=== PATIENT | male | born 1945 | race Caucasian/White ===

== ENCOUNTER → 2017-08-27 | Outpatient (CLI) | payer MEDICARE, BC ==
[2016-11-10 21:15] VITALS: BP 156/87
[~2017-08-27] MED LIST: ALLO100T PO; AZIT250T PO; CARV3.122 PO; CEFP200T PO; COLC0.6T34 PO; DABI150C PO; DIGO125T PO; DILT120T3 PO; FURO-68 PO; HYDR-2869 PO; INSU100C4 SQ; INSU100I17 SQ; INSU100V13 SQ; LISI-338 PO; LOSA100T6 PO; METO2.5T PO; METO50TA29 PO; POTA20TA82 PO; PRAV20TA2 PO; SPIR50TA2 PO; TORS100T3 PO
--- NOTE | 2017-08-27 16:52 | RAD ---
EXAM: Bilateral lower extremity arterial Doppler. HISTORY: Peripheral vascular disease, hypertension, diabetes, smoking history. COMPARISON: None. FINDINGS: Grayscale and Doppler analysis of the lower extremity arterial systems was performed. On the right, there are triphasic waveforms through the distal superficial femoral artery. There are biphasic and the popliteal artery. It becomes monophasic by the distal posterior tibial artery, but biphasic within the peroneal and anterior tibial arteries. There are monophasic within the dorsalis pedis artery. On the left, there are triphasic waveforms through the popliteal artery. There are biphasic within the peroneal and posterior tibial arteries and triphasic in the anterior tibial artery. There are monophasic in the dorsalis pedis artery. Scattered plaquing is noted throughout both lower injury arterial systems. IMPRESSION: 1. Mildly flow limiting stenosis within the proximal trifurcation vessels on the right. This becomes significantly flow limiting distally. 2. Mildly flow limiting stenosis within the left posterior tibial and peroneal arteries. It is significantly flow limiting by the dorsalis preserved.
== END | disposition home or self-care (01) ==
LOC: US 14:35
PROVIDERS: ATTEND Internal Medicine Cardiovascular Disease
DX: I70.203 Unspecified atherosclerosis of native arteries of extremities, bilateral legs (principal); E11.9 Type 2 diabetes mellitus without complications; I10 Essential (primary) hypertension; Z87.891 Personal history of nicotine dependence
CPT/HCPCS: 93925

== ENCOUNTER → 2017-11-11 | Outpatient (CLI) | payer MEDICARE, BC ==
[2016-11-10 21:15] VITALS: BP 156/87
--- NOTE | 2017-11-11 10:29 | RAD ---
2 views of the Chest 11/11/2017 2:00 AM Indication: CHEST CONGESTION Comparison: Chest radiograph, yesterday Findings: Patchy interstitial alveolar infiltrates throughout the bilateral lungs are have slightly increased in the interim since prior exam. The heart is enlarged. There is central vascular congestion. No pneumothorax or significant effusion is seen. No acute osseous changes are identified. Impression: 1. Interval mild increase in patchy interstitial alveolar infiltrates which could represent edema or pneumonia 2. Cardiomegaly and central vascular congestion
== END | disposition home or self-care (01) ==
LOC: PMG 09:48
PROVIDERS: ATTEND Physician Assistant Medical
DX: R09.89 Other specified symptoms and signs involving the circulatory and respiratory systems (principal); R91.8 Other nonspecific abnormal finding of lung field; I13.0 Hypertensive heart and chronic kidney disease with heart failure and stage 1 through stage 4 chronic kidney disease, or unspecified chronic kidney disease; E11.22 Type 2 diabetes mellitus with diabetic chronic kidney disease; N18.4 Chronic kidney disease, stage 4 (severe); I50.42 Chronic combined systolic (congestive) and diastolic (congestive) heart failure; N17.9 Acute kidney failure, unspecified; Z87.891 Personal history of nicotine dependence; Z79.4 Long term (current) use of insulin
CPT/HCPCS: 71046

== ENCOUNTER → 2018-02-20 | Outpatient (CLI) | payer MEDICARE, BC ==
[2016-11-10 21:15] VITALS: BP 156/87
--- NOTE | 2018-02-20 16:15 | RAD ---
Ankle-brachial indices, 02/20/2018: HISTORY: Nonhealing right leg wound Resting MAX measurements were obtained. Normal MAX measurements of 1.11 on the right and 1.19 on the left were obtained. Right lower extremity arterial ultrasound, 02/20/2018: HISTORY: Nonhealing right leg wound. Duplex evaluation of the major arteries in the right lower extremity was performed including grayscale, color-flow and spectral Doppler analysis. There are mild to moderate scattered atherosclerotic plaques. The right common femoral, superficial femoral and popliteal arteries demonstrate triphasic Doppler waveforms. No significant focal velocity acceleration is seen in these vessels to suggest high-grade stenosis. A patent posterior tibial artery in the right lower leg demonstrates a triphasic Doppler waveform. Patent peroneal and anterior tibial arteries in the right lower leg demonstrate biphasic Doppler waveforms. The right dorsalis pedis Doppler waveform is monophasic. A high velocity reading of 269 cm/s was obtained from the right dorsalis pedis artery suggesting severe focal stenosis at that level. IMPRESSION: 1. Mild to moderate scattered atherosclerotic plaquing. 2. No evidence of high-grade femoral-popliteal arterial stenosis. 3. Three-vessel arterial runoff in the right lower leg. 4. Doppler findings suggesting right dorsalis pedis arterial stenosis. Electronically signed by: Adeel Morin MD (02/20/2018 4:11 PM) [facility]
== END | disposition home or self-care (01) ==
LOC: US 09:52
PROVIDERS: ATTEND Emergency Medicine Undersea and Hyperbaric Medicine
DX: S81.801D Unspecified open wound, right lower leg, subsequent encounter (principal); I70.291 Other atherosclerosis of native arteries of extremities, right leg; I13.0 Hypertensive heart and chronic kidney disease with heart failure and stage 1 through stage 4 chronic kidney disease, or unspecified chronic kidney disease; E11.22 Type 2 diabetes mellitus with diabetic chronic kidney disease; I50.9 Heart failure, unspecified; N18.4 Chronic kidney disease, stage 4 (severe); E78.5 Hyperlipidemia, unspecified; X58.XXXD Exposure to other specified factors, subsequent encounter
CPT/HCPCS: 93922; 93926

== ENCOUNTER 2019-01-04 16:27 | Emergency (ER) | payer MEDICARE, BC ==
[~2019-01-04] VITALS: Ht 182.9 cm; Wt 122.2 kg
[~2019-01-04 16:27] MED LIST changes: -CARV3.122 PO; +CARV3.1230 PO; -DIGO125T PO; +DIGO125T17 PO; +LOSA100T14 PO; -LOSA100T6 PO; -SPIR50TA2 PO; +SPIR50TA4 PO
[2019-01-04 17:06] LABS: BASO # 0.1 x10^3/uL (0.0-0.2); BASO % 1 % (0-3); EOS # 0.2 x10^3/uL (0.0-0.7); EOS % 1 % (0-3); HEMATOCRIT 28.3 % (39.0-53.0); HEMOGLOBIN 9.3 g/dL (13.0-17.5); LYMPH # 1.2 x10^3/uL (1.0-4.8); LYMPH % 8 % (24-48); MEAN CORPUSCULAR HEMOGLOBIN 33 pg (25-35); MEAN CORPUSCULAR HGB CONC 33 g/dL (31-37); MEAN CORPUSCULAR VOLUME 101 fL (79-100); MONO % 7 % (0-9); NEUT # 12.4 x10^3uL (1.8-7.7); NEUT % 83 % (31-73); PLATELET COUNT 235 x10^3/uL (140-400); RED BLOOD COUNT 2.81 x10^6/uL (4.30-5.70); RED CELL DISTRIBUTION WIDTH 13.8 % (11.5-14.5); WHITE BLOOD COUNT 14.9 x10^3/uL (4.0-11.0)
--- NOTE | 2019-01-04 17:15 | PHYS DOC ---
Past History Past Medical History: Anemia, Arrhythmia, CHF, Diabetes, High Cholesterol, Heart Disease, Hypertension, Other Past Surgical History: Other Smoking: Non-smoker Alcohol Use: None Drug Use: None Adult General Chief Complaint Chief Complaint: SHORTNESS OF BREATH HPI HPI Patient is a 73 year old male who presents with complaint shortness of breath for the past 2 days. The patient states he feels very weak and short of breath at this time. Noted during triage to have O2 sats in the mid 80s. Known history of congestive heart failure, end-stage renal disease, and diabetes mellitus. Recently admitted at [facility] for treatment of congestive heart failure and sepsis in May 2018. Currently denies any chest pain. Has been having increasing lower extremity edema. Attends dialysis on Saturday, Saturday, and Saturday, and was at dialysis for full treatment 2 days ago. States that he is unable to ambulate the past a few steps without getting severely short of breath currently. Review of Systems Review of Systems Constitutional: Fatigue, denies fever or chills [] Eyes: Denies change in visual acuity, redness, or eye pain [] HENT: Denies nasal congestion or sore throat [] Respiratory: Shortness of breath[] Cardiovascular: Dyspnea on exertion, orthopnea, lower extremity edema[] GI: Denies abdominal pain, nausea, vomiting, bloody stools or diarrhea [] : Denies dysuria or hematuria [] Musculoskeletal: Denies back pain or joint pain [] Integument: Chronic wound on right great toe, denies rash [] Neurologic: Denies headache, focal weakness or sensory changes [] All other systems were reviewed and found to be within normal limits, except as documented in this note. Allergies Allergies Allergies Coded Allergies Type Severity Reaction Last Updated Verified lisinopril Adverse Reaction Intermediate cough 12/02/13 Yes Physical Exam Physical Exam Constitutional: Alert, afebrile, appears in chronically poor health. [] HENT: Normocephalic, atraumatic, bilateral external ears normal, oropharynx moist, no oral exudates, nose normal. [] Eyes: PERRLA, EOMI, conjunctiva normal, no discharge. [] Neck: Normal range of motion, no tenderness, supple, no stridor. [] Cardiovascular: Irregular rhythm, normal rate, no murmur [] Lungs & Thorax: Tachypneic, mild to moderate dissection of air movement bilaterally, rales bilaterally[] Abdomen: Bowel sounds normal, soft, no tenderness, no masses, no pulsatile masses. [] Skin: Warm, dry, no erythema, no rash. [] Back: No tenderness, no CVA tenderness. [] Extremities: No tenderness, no cyanosis, no clubbing, ROM intact, 2+ pitting edema in the bilateral lower extremities, 1 cm diabetic ulcer to the right great toe appears to be healing well with no surrounding erythema, no devitalized tissue in wound.. [] Neurologic: Alert and oriented X 3, normal motor function, normal sensory function, no focal deficits noted. [] Current Patient Data Vital Signs Vital Signs Date Time Temp Pulse Resp B/P (MAP) Pulse Ox O2 Delivery O2 Flow Rate FiO2 01/04/19 16:43 114 18 96 Room Air Lab Results Laboratory Tests Test 01/04/19 16:45 White Blood Count 14.9 x10^3/uL Red Blood Count 2.81 x10^6/uL Hemoglobin 9.3 g/dL Hematocrit 28.3 % Mean Corpuscular Volume 101 fL Mean Corpuscular Hemoglobin 33 pg Mean Corpuscular Hemoglobin Concent 33 g/dL Red Cell Distribution Width 13.8 % Platelet Count 235 x10^3/uL Neutrophils (%) (Auto) 83 % Lymphocytes (%) (Auto) 8 % Monocytes (%) (Auto) 7 % Eosinophils (%) (Auto) 1 % Basophils (%) (Auto) 1 % Neutrophils # (Auto) 12.4 x10^3uL Lymphocytes # (Auto) 1.2 x10^3/uL Monocytes # (Auto) 1.0 x10^3/uL Eosinophils # (Auto) 0.2 x10^3/uL Basophils # (Auto) 0.1 x10^3/uL Sodium Level 142 mmol/L Potassium Level 4.3 mmol/L Chloride Level 99 mmol/L Carbon Dioxide Level 33 mmol/L Anion Gap 10 Blood Urea Nitrogen 57 mg/dL Creatinine 7.5 mg/dL Estimated GFR (Cockcroft-Gault) 7.2 BUN/Creatinine Ratio 8 Glucose Level 215 mg/dL Calcium Level 10.1 mg/dL Total Bilirubin 0.6 mg/dL Aspartate Amino Transf (AST/SGOT) 14 U/L Alanine Aminotransferase (ALT/SGPT) 20 U/L Alkaline Phosphatase 94 U/L Creatine Kinase 46 U/L Creatine Kinase MB (Mass) 1.8 ng/mL Creatine Kinase MB Relative Index 3.9 % Troponin I Quantitative 0.055 ng/mL PH-Qxs-F-Type Natriuretic Peptide > 80529 pg/mL Total Protein 7.6 g/dL Albumin 3.0 g/dL Albumin/Globulin Ratio 0.7 Current Medications Medications (Trade) Dose Ordered Sig/Jordon Route PRN Reason Start Time Stop Time Status Last Admin Dose Admin Furosemide (Lasix) 40 mg 1X ONCE IVP 01/04/19 18:00 01/04/19 18:01 01/04/19 17:42 EKG EKG Interpreted by me: Heart rate 82, atrial fibrillation, left axis deviation, no acute ST elevations or depressions[] Radiology/Procedures Radiology/Procedures One view chest x-ray interpreted by me: Bilateral interstitial edema, pulmonary vascular congestion, cardiomegaly Course & Med Decision Making Course & Med Decision Making Pertinent Labs and Imaging studies reviewed. (See chart for details) Patient was started on supplemental oxygen in the emergency department at 2 L per nasal cannula with improvement in O2 sats to 95%. Chest x-ray consistent with pulmonary edema secondary to fluid overload. Due to the patient's health needs, the patient will need transfer to a higher level of care for further treatment. I spoke with Dr. Rod, hospitalist, at [facility] who agreed to accept patient for transfer. Patient treated with 40 mg of IV Lasix to help with fluid overload. Will transferred by ground EMS to [facility] for definitive care.[] Dragon Disclaimer Dragon Disclaimer This electronic medical record was generated, in whole or in part, using a voice recognition dictation system. Departure Departure: Impression: Primary Impression: Pulmonary edema Additional Impressions: Hypoxia Acute on chronic congestive heart failure End stage renal disease Diabetic ulcer of left great toe Essential hypertension Disposition: XFER SHT-TRM HOSP Condition: STABLE Referrals: [facility] (PCP) Problem Qualifiers Primary Impression: Pulmonary edema Chronicity: acute Qualified Codes: J81.0 - Acute pulmonary edema Additional Impressions: Acute on chronic congestive heart failure Heart failure type: unspecified Qualified Codes: I50.9 - Heart failure, unspecified SINDY PRADO MD Jan 04, 2019 17:15
[2019-01-04 17:28] LABS: ALBUMIN/GLOBULIN RATIO 0.7 (1.0-1.7); ALK PHOS 94 U/L (46-116); ALT (SGPT) 20 U/L (16-63); ANION GAP 10 (6-14); AST (SGOT) 14 U/L (15-37); BLOOD UREA NITROGEN 57 mg/dL (8-26); BUN/CREATININE RATIO 8 (6-20); CALCIUM 10.1 mg/dL (8.5-10.1); CARBON DIOXIDE 33 mmol/L (21-32); CHLORIDE 99 mmol/L (98-107); CREATININE 7.5 mg/dL (0.7-1.3); GFR 7.2; GLUCOSE 215 mg/dL (70-99); POTASSIUM 4.3 mmol/L (3.5-5.1); SODIUM 142 mmol/L (136-145); TOTAL BILIRUBIN 0.6 mg/dL (0.2-1.0); TOTAL PROTEIN 7.6 g/dL (6.4-8.2)
[2019-01-04 17:40] VITALS: BP 161/84
--- NOTE | 2019-01-04 17:59 | EKG ---
[address] [address] Test Date: 2019-01-04 Test Time: 16:39:11 Pat Name: ULYSSES ELAM Department: Room: Gender: M Manager Stylist: GRICEL : 1945 Requested By: SINDY PRADO Order Number: [id number] Reading MD: Hosea Vieyra MD Measurements Intervals [place] Rate: 82 P: [place]: QRS: -54 QRSD: 132 T: 118 QT: 430 QTc: 506 Interpretive Statements PROBABLE AFIB PVC'S Electronically Signed On 01-08-2019 15:53:27 CDT by Hosea Vieyra MD
[2019-01-04] MEDS ORDERED: FUROSEMIDE 40 MG/4 ML VIAL IVP ONE (18:00)
[2019-01-04 18:06] LABS: INFLUENZA A PATIENT NEGATIVE (NEGATIVE); INFLUENZA B PATIENT NEGATIVE (NEGATIVE)
--- NOTE | 2019-01-05 07:52 | RAD ---
PORTABLE CHEST 1V CLINICAL INDICATION: Short of air, weakness COMPARISON: 11/11/2017 FINDINGS: Heart is normal in size. Diffuse bilateral interstitial opacities are seen. No focal consolidation. No pneumothorax or pleural effusion. Visualized bony thorax is within normal limits. IMPRESSION: Bilateral interstitial opacities maybe secondary to interstitial pulmonary edema or atypical/viral infection. Electronically signed by: Rob Servin DO (01/05/2019 7:49 AM) [facility]
== END 2019-01-04 17:55 | disposition short-term general hospital (02) ==
LOC: ER 16:27
DX: J81.1 Chronic pulmonary edema (principal); R09.02 Hypoxemia; I50.9 Heart failure, unspecified; I09.81 Rheumatic heart failure; E11.22 Type 2 diabetes mellitus with diabetic chronic kidney disease; I13.2 Hypertensive heart and chronic kidney disease with heart failure and with stage 5 chronic kidney disease, or end stage renal disease; N18.6 End stage renal disease; E78.00 Pure hypercholesterolemia, unspecified; E11.621 Type 2 diabetes mellitus with foot ulcer; Z99.2 Dependence on renal dialysis; Z86.2 Personal history of diseases of the blood and blood-forming organs and certain disorders involving the immune mechanism; Z88.8 Allergy status to other drugs, medicaments and biological substances
CPT/HCPCS: 36415; 71045; 80053; 82553; 83880; 84484; 85025; 87804; 93005; 96374; 99285; J1940

== ENCOUNTER 2019-01-15 07:58 | Emergency (ER) | payer MEDICARE, BC ==
[~2019-01-15] VITALS: Ht 182.9 cm; Wt 117.2 kg
--- NOTE | 2019-01-15 08:20 | PHYS DOC ---
Past History Past Medical History: Anemia, Arrhythmia, CHF, Diabetes, High Cholesterol, Heart Disease, Hypertension, Other Past Surgical History: Other Additional Past Surgical Histo: dialysis fistula left arm Smoking: Non-smoker Alcohol Use: None Drug Use: None Adult General Chief Complaint Chief Complaint: DYSPNEA/RESPIRATOY DISTRESS HPI HPI Patient is a 73 year old male who presents with complaint shortness of breath for the past week days. The patient states he feels very short of breath at this time. He was released from [facility] 1 week ago for the same thing. Notes that he has difficulty sleeping, having to sleep more upright since returning home and this is been getting worse over time. Known history of congestive heart failure, end-stage renal disease, and diabetes mellitus. Currently denies any chest pain. Has been having increasing lower extremity edema. Attends dialysis on Saturday, Saturday, and Saturday, and was at dialysis for full treatment 1 days ago. States that he is unable to ambulate the past a few steps without getting severely short of breath currently.[] Review of Systems Review of Systems Constitutional: Denies fever or chills [] Eyes: Denies change in visual acuity, redness, or eye pain [] HENT: Denies nasal congestion or sore throat [] Respiratory: See history of present illness[] Cardiovascular: No chest pain or palpitations[] GI: Denies abdominal pain, nausea, vomiting, bloody stools or diarrhea [] : Denies dysuria or hematuria [] Musculoskeletal: Denies back pain or joint pain [] Integument: Denies rash or skin lesions [] Neurologic: Denies headache, focal weakness or sensory changes [] Endocrine: Denies polyuria or polydipsia [] All other systems were reviewed and found to be within normal limits, except as documented in this note. Allergies Allergies Allergies Coded Allergies Type Severity Reaction Last Updated Verified lisinopril Adverse Reaction Intermediate cough 12/02/13 Yes Physical Exam Physical Exam Constitutional: Well developed, well nourished, no acute distress, non-toxic appearance. [] HENT: Normocephalic, atraumatic, bilateral external ears normal, oropharynx moist, no oral exudates, nose normal. [] Eyes: PERRLA, EOMI, conjunctiva normal, no discharge. [] Neck: Normal range of motion, no tenderness, supple, no stridor. [] Cardiovascular:Heart rate regular rhythm, no murmur [] Lungs & Thorax: Bilateral breath sounds with diminished breath sounds, scattered rales[] Abdomen: Bowel sounds normal, soft, no tenderness, no masses, no pulsatile masses. [] Skin: Warm, dry, no erythema, no rash. [] Back: No tenderness, no CVA tenderness. [] Extremities: No tenderness, no cyanosis, no clubbing, ROM intact, pretibial edema is present. Patient's right lower extremity/foot not evaluated since it is in a dressing from wound care. reports that this was doing better when evaluated 2 days ago and redressed at that time. [] Neurologic: Alert and oriented X 2, this is his normal baseline according to his , normal motor function, normal sensory function, no focal deficits noted. [] Psychologic: Affect flat, [] EKG EKG EKG shows a regular rhythm at 65 bpm, left axis at -54, QTC of 490 ms, and no ST elevations, interpreted by me at 0823[] Radiology/Procedures Radiology/Procedures Portable chest, 01/15/2019: HISTORY: Shortness of breath Comparison is made to a study from 01/04/2019. The heart is enlarged. The pulmonary vascularity is prominent but better defined than on the previous study. There are minimal bibasilar opacities. The findings suggest improving chronic congestive heart failure. No definite pleural fluid is seen. A vascular stent is projected over the left axillary region. IMPRESSION: Mild congestive heart failure has improved since 01/04/2019.[] Course & Med Decision Making Course & Med Decision Making Pertinent Labs and Imaging studies reviewed. (See chart for details) ED course: Patient arrived, was placed in bed, and tolerated exam well. After the return of the lab and imaging studies, consultation was made initially with Dr. Lu, who does not recall the patient from last week. Further evaluation of the patient's medical record shows that he was admitted to the hospitalist service at [facility]. During the time of waiting for reply from the hospitalist service, and after having discussed lab and imaging findings with patient and family, they were wanting to leave and just receive dialysis tomorrow. Stressed that they were here because they were worried that the patient was not able to sleep due to difficulty breathing and that this had been getting worse over the past week. Initially they requested cough medicine and wanted to leave AGAINST MEDICAL ADVICE. They appear to be able to make an informed decision and were able to state the risks to include or permanent disability in their own words. Ultimately they decided to stay/be transferred. Medical decision making: This appears to be fluid overload/CHF that while improved with dialysis from his last admission seems to be worsening again over this past week since discharge. There is no evidence of a STEMI, no evidence of a pneumonia.[] Dragon Disclaimer Dragon Disclaimer This electronic medical record was generated, in whole or in part, using a voice recognition dictation system. Departure Departure: Impression: Primary Impression: Acute on chronic diastolic (congestive) heart failure Additional Impression: End stage renal disease Disposition: 05 TRANSFER OTHER Condition: IMPROVED Referrals: [facility] (PCP) Problem Qualifiers YADY BISHOP DO Jan 15, 2019 08:19
--- NOTE | 2019-01-15 08:23 | EKG ---
[address] [address] Test Date: 2019-01-15 Test Time: 08:21:30 Pat Name: ULYSSES ELAM Department: Room: Gender: M Waste Baler: : 1945 Requested By: YADY BISHOP Order Number: [id number] Reading MD: Hosea Vieyra MD Measurements Intervals [place] Rate: 65 P: [place]: QRS: -54 QRSD: 126 T: 122 QT: 470 QTc: 490 Interpretive Statements ATRIAL FIBRILLATION WITH CONTROLLED VENTRICULAR RESPONSE NON-SPECIFIC ST/T CHANGES LAD IVCD Electronically Signed On 01-18-2019 22:04:07 CDT by Hosea Vieyra MD
[2019-01-15 08:30] LABS: BASO # 0.1 x10^3/uL (0.0-0.2); BASO % 1 % (0-3); EOS # 0.2 x10^3/uL (0.0-0.7); EOS % 2 % (0-3); HEMATOCRIT 26.7 % (39.0-53.0); LYMPH # 0.9 x10^3/uL (1.0-4.8); LYMPH % 10 % (24-48); MEAN CORPUSCULAR HEMOGLOBIN 34 pg (25-35); MEAN CORPUSCULAR HGB CONC 34 g/dL (31-37); MEAN CORPUSCULAR VOLUME 100 fL (79-100); MONO # 0.8 x10^3/uL (0.0-1.1); MONO % 8 % (0-9); NEUT # 7.6 x10^3uL (1.8-7.7); NEUT % 80 % (31-73); PLATELET COUNT 195 x10^3/uL (140-400); RED BLOOD COUNT 2.68 x10^6/uL (4.30-5.70); RED CELL DISTRIBUTION WIDTH 13.9 % (11.5-14.5); WHITE BLOOD COUNT 9.5 x10^3/uL (4.0-11.0)
[2019-01-15 08:50] LABS: ALBUMIN 3.1 g/dL (3.4-5.0); ALBUMIN/GLOBULIN RATIO 0.8 (1.0-1.7); CALCIUM 8.7 mg/dL (8.5-10.1); CREATININE 5.2 mg/dL (0.7-1.3); MAGNESIUM 1.9 mg/dL (1.8-2.4); POTASSIUM 4.2 mmol/L (3.5-5.1); TOTAL BILIRUBIN 0.5 mg/dL (0.2-1.0); TOTAL PROTEIN 7.2 g/dL (6.4-8.2)
--- NOTE | 2019-01-15 08:53 | RAD ---
Portable chest, 01/15/2019: HISTORY: Shortness of breath Comparison is made to a study from 01/04/2019. The heart is enlarged. The pulmonary vascularity is prominent but better defined than on the previous study. There are minimal bibasilar opacities. The findings suggest improving chronic congestive heart failure. No definite pleural fluid is seen. A vascular stent is projected over the left axillary region. IMPRESSION: Mild congestive heart failure has improved since 01/04/2019. Electronically signed by: Adeel Morin MD (01/15/2019 8:50 AM) [facility]
[2019-01-15 10:37] VITALS: BP 144/70
== END 2019-01-15 11:50 | disposition short-term general hospital (02) ==
LOC: ER 07:58
DX: E11.22 Type 2 diabetes mellitus with diabetic chronic kidney disease (principal); I13.2 Hypertensive heart and chronic kidney disease with heart failure and with stage 5 chronic kidney disease, or end stage renal disease; I50.9 Heart failure, unspecified; N18.6 End stage renal disease; Z99.2 Dependence on renal dialysis; Z86.2 Personal history of diseases of the blood and blood-forming organs and certain disorders involving the immune mechanism; Z88.8 Allergy status to other drugs, medicaments and biological substances
CPT/HCPCS: 36415; 71045; 80053; 83690; 83735; 83880; 84443; 84484; 85025; 85610; 93005; 99285

== ENCOUNTER 2019-06-11 08:09 | Emergency (ER) | payer MEDICARE, BC ==
[~2019-06-11] VITALS: Ht 182.9 cm; Wt 117.2 kg
--- NOTE | 2019-06-11 08:35 | EKG ---
[address] [address] Test Date: 2019-06-11 Test Time: 08:15:29 Pat Name: ULYSSES ELAM Department: Room: Gender: M Property Management Specialist: : 1945 Requested By: YADY BISHOP Order Number: [id number] Reading MD: Hosea Vieyra MD Measurements Intervals [place] Rate: 63 P: [place]: QRS: -62 QRSD: 140 T: 114 QT: 478 QTc: 493 Interpretive Statements ATRIAL FIBRILLATION WITH CONTROLLED VENTRICULAR RESPONSE CONSIDER LVH LBBB Electronically Signed On 06-12-2019 15:54:31 CDT by Hosea Vieyra MD
[2019-06-11 08:48] LABS: BASO # 0.1 x10^3/uL (0.0-0.2); BASO % 1 % (0-3); EOS # 0.1 x10^3/uL (0.0-0.7); EOS % 2 % (0-3); HEMATOCRIT 34.7 % (39.0-53.0); HEMOGLOBIN 11.5 g/dL (13.0-17.5); LYMPH % 11 % (24-48); MEAN CORPUSCULAR HEMOGLOBIN 33 pg (25-35); MEAN CORPUSCULAR HGB CONC 33 g/dL (31-37); MEAN CORPUSCULAR VOLUME 100 fL (79-100); MONO # 0.5 x10^3/uL (0.0-1.1); MONO % 6 % (0-9); NEUT # 6.9 x10^3uL (1.8-7.7); NEUT % 81 % (31-73); PLATELET COUNT 107 x10^3/uL (140-400); RED BLOOD COUNT 3.46 x10^6/uL (4.30-5.70); RED CELL DISTRIBUTION WIDTH 16.5 % (11.5-14.5); WHITE BLOOD COUNT 8.6 x10^3/uL (4.0-11.0)
--- NOTE | 2019-06-11 08:48 | PHYS DOC ---
Past History Past Medical History: A-Fib, Anemia, Arrhythmia, CHF, CVA, Diabetes, High Cholesterol, Heart Disease, Hypertension Past Surgical History: No Surgical History Additional Past Surgical Histo: dialysis fistula left arm Smoking: Non-smoker Alcohol Use: None Drug Use: None Adult General Chief Complaint Chief Complaint: MECHANICAL FALL HPI HPI Patient is a 74-year-old male presents after a syncopal episode this morning as he was taking out the trash. He did strike his head. He is on eliquis due to known history of atrial fibrillation. He denies any chest pains or palpitations. Reports that he was only out for a couple of seconds. His last tetanus vaccine was less than 5 years ago. Denies any nausea or vomiting. Denies any difficulty breathing. Nothing makes symptoms better or worse..[] Review of Systems Review of Systems Constitutional: Denies fever or chills [] Eyes: Denies change in visual acuity, redness, or eye pain [] HENT: Denies nasal congestion or sore throat [] Respiratory: Denies cough or shortness of breath [] Cardiovascular: No additional information not addressed in HPI [] GI: Denies abdominal pain, nausea, vomiting, bloody stools or diarrhea [] : Denies dysuria or hematuria [] Musculoskeletal: Denies back pain or joint pain [] Integument: Denies rash, see history of present illness, also abrasion on his left knee[] Neurologic: Denies focal weakness or sensory changes, see history of present illness [] Endocrine: Denies polyuria or polydipsia [] All other systems were reviewed and found to be within normal limits, except as documented in this note. Allergies Allergies Allergies Coded Allergies Type Severity Reaction Last Updated Verified lisinopril Adverse Reaction Intermediate cough 12/02/13 Yes Physical Exam Physical Exam Constitutional: Well developed, well nourished, no acute distress, non-toxic appearance. [] HENT: Normocephalic, abrasion and edema right forehead. TMs are clear without any blood or fluid behind them, bilateral external ears normal, oropharynx moist, no oral exudates, nose normal. [] Eyes: PERRLA, EOMI, conjunctiva normal, no discharge. [] Neck: Normal range of motion, no tenderness, supple, no stridor. [] Cardiovascular:Heart rate regular rhythm, no murmur [] Lungs & Thorax: Bilateral breath sounds clear to auscultation [] Abdomen: Bowel sounds normal, soft, no tenderness, no masses, no pulsatile masses. [] Skin: Warm, dry, no erythema, no rash. Abrasion left knee, full active range of motion of the knee. No varus or valgus laxity of the left knee. Patient is distally neurovascularly intact. [] Back: No tenderness, no CVA tenderness. [] Extremities: No tenderness, no cyanosis, no clubbing, ROM intact, no edema. [] Neurologic: Alert and oriented X 3, normal motor function, normal sensory function, no focal deficits noted. [] Psychologic: Affect normal, judgement normal, mood normal. [] Current Patient Data Vital Signs Vital Signs Date Time Temp Pulse Resp B/P (MAP) Pulse Ox O2 Delivery O2 Flow Rate FiO2 06/11/19 08:09 97.7 67 22 92 EKG EKG EKG shows an irregular rhythm with no P waves, 63 bpm, left axis, QTC of 493 ms, no ST elevation. No acute changes when compared with EKG of 01/15/2019.[] Radiology/Procedures Radiology/Procedures PROCEDURE: CT HEAD AND CERVICAL SPINE WO CT HEAD AND CERVICAL SPINE WO Date: 06/11/2019 8:29 AM Clinical Indication: Syncope, head injury, on blood thinners Comparison: CT head 10/18/2015. CT head and C-spine 12/04/2013. Technique: 5 mm axial tomographic images were obtained of the head without contrast. These were viewed on brain and bone windows. Noncontrast CT of the cervical spine was performed. Sagittal and coronal reformats were performed and evaluated. One or more of the following dose reduction techniques were utilized: Automated exposure control (AEC), Adjustment of mA and/or kV according to patient size, Use of iterative reconstruction technique such as ASiR, CT scan done according to ALARA and image gently/image wisely HEAD FINDINGS: Mild generalized cerebral and cerebellar volume loss. Moderate nonspecific periventricular hypoattenuation, most commonly seen with chronic small vessel ischemic disease. Large area of left posterior MCA territory encephalomalacia. No intra- or extra-axial mass or fluid collection. No acute hemorrhage. Exvacuodilatation of the left lateral ventricle occipital and temporal horns. No hydrocephalus. The burns-white matter junction is normal. The basilar cisterns are patent. The visualized paranasal sinuses are normal. The visualized portions of the orbits and globes are normal. The mastoid air cells are clear. No aggressive osseous lesion or fracture. CERVICAL SPINE FINDINGS: The cervical spine is normally aligned. No acute fracture. No aggressive lytic or blastic osseous lesions. Moderate multilevel degenerative disc space height loss. Multilevel spinal canal stenosis secondary to disc protrusions and marginal osteophytes, worst and moderate to severe at C3-4. Multilevel mild and moderate neuroforaminal narrowing secondary to uncovertebral arthrosis. Multilevel mild and moderate facet arthrosis. Bilateral thyroid nodules, largest a 2.3 cm right thyroid nodule. No cervical lymphadenopathy. Bilateral carotid atherosclerosis. The visualized aerodigestive tract is normal. The visualized portions of the lungs are clear. IMPRESSION: 1. No acute intracranial process. 2. No acute cervical spine fracture. 3. Mild cerebral volume loss. Moderate chronic small vessel ischemic disease. Large area of left MCA territory encephalomalacia. 4. Degenerative cervical spondylosis, worst at C3-4 with moderate to severe spinal canal narrowing. 5. Indeterminate right thyroid nodule measuring 2.2 cm. This could be further characterized with nonemergent thyroid ultrasound, if not performed previously. PROCEDURE: PORTABLE CHEST 1V PORTABLE CHEST 1V INDICATION: Syncope. COMPARISON STUDY: 01/15/2019. FINDINGS: Lungs: Low lung volume. Bilateral perihilar and basilar heterogeneous opacities. Indistinct pulmonary vasculature. Pleura: No pleural effusion or pneumothorax. Heart and Mediastinum: Cardiomegaly. Atherosclerosis of the thoracic aorta. IMPRESSION: Low lung volumes with bilateral perihilar and basilar opacities, likely subsegmental atelectasis and interstitial edema. [] Course & Med Decision Making Course & Med Decision Making Pertinent Labs and Imaging studies reviewed. (See chart for details) ED course: Patient arrived, was placed in bed, and tolerated exam well. Was transferred to and from radiology with any Patients. After return of the imaging studies and lab studies, these were discussed with the patient. Aspirin was ordered. Wounds were cleaned and dressed as noted. Consultation was made with the hospitalist service due to the syncopal episode and the elevated troponin. He was admitted in improved condition. Medical decision making: There is no evidence of an intracranial mass or bleed. 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 He is being admitted for further evaluation and treatment.[] Dragon Disclaimer Dragon Disclaimer This electronic medical record was generated, in whole or in part, using a voice recognition dictation system. Departure Departure: Impression: Primary Impression: Elevated troponin Additional Impressions: Syncope Chronic kidney disease Disposition: 05 TRANSFER OTHER Admitting Physician: Zeenat Lu Condition: IMPROVED Referrals: [facility] (PCP) Laceration Repair Lac Repair Indication: Right forehead deep abrasion[] Procedure: The patient was placed in the appropriate position and the area was then cleansed. The laceration was closed with skin glue Total repaired wound length: 1.2 cm. Other Items: None The patient tolerated the procedure well. Complications: None. Problem Qualifiers Additional Impressions: Syncope Syncope type: unspecified Qualified Codes: R55 - Syncope and collapse Chronic kidney disease Chronic kidney disease stage: on chronic dialysis Qualified Codes: N18.6 - End stage renal disease; Z99.2 - Dependence on renal dialysis YADY BISHOP DO Jun 11, 2019 08:48
[2019-06-11 09:00] LABS: ALBUMIN 3.5 g/dL (3.4-5.0); CALCIUM 9.2 mg/dL (8.5-10.1); CREATININE 6.3 mg/dL (0.7-1.3); GFR 8.8; POTASSIUM 3.9 mmol/L (3.5-5.1); TOTAL BILIRUBIN 0.7 mg/dL (0.2-1.0); TOTAL PROTEIN 7.1 g/dL (6.4-8.2)
--- NOTE | 2019-06-11 09:08 | RAD ---
PORTABLE CHEST 1V INDICATION: Syncope. COMPARISON STUDY: 01/15/2019. FINDINGS: Lungs: Low lung volume. Bilateral perihilar and basilar heterogeneous opacities. Indistinct pulmonary vasculature. Pleura: No pleural effusion or pneumothorax. Heart and Mediastinum: Cardiomegaly. Atherosclerosis of the thoracic aorta. IMPRESSION: Low lung volumes with bilateral perihilar and basilar opacities, likely subsegmental atelectasis and interstitial edema. Electronically signed by: Leon Adame MD (06/11/2019 9:05 AM) [facility] [place]
--- NOTE | 2019-06-11 09:25 | RAD ---
CT HEAD AND CERVICAL SPINE WO Date: 06/11/2019 8:29 AM Clinical Indication: Syncope, head injury, on blood thinners Comparison: CT head 10/18/2015. CT head and C-spine 12/04/2013. Technique: 5 mm axial tomographic images were obtained of the head without contrast. These were viewed on brain and bone windows. Noncontrast CT of the cervical spine was performed. Sagittal and coronal reformats were performed and evaluated. One or more of the following dose reduction techniques were utilized: Automated exposure control (AEC), Adjustment of mA and/or kV according to patient size, Use of iterative reconstruction technique such as ASiR, CT scan done according to ALARA and image gently/image wisely HEAD FINDINGS: Mild generalized cerebral and cerebellar volume loss. Moderate nonspecific periventricular hypoattenuation, most commonly seen with chronic small vessel ischemic disease. Large area of left posterior MCA territory encephalomalacia. No intra- or extra-axial mass or fluid collection. No acute hemorrhage. Exvacuodilatation of the left lateral ventricle occipital and temporal horns. No hydrocephalus. The burns-white matter junction is normal. The basilar cisterns are patent. The visualized paranasal sinuses are normal. The visualized portions of the orbits and globes are normal. The mastoid air cells are clear. No aggressive osseous lesion or fracture. CERVICAL SPINE FINDINGS: The cervical spine is normally aligned. No acute fracture. No aggressive lytic or blastic osseous lesions. Moderate multilevel degenerative disc space height loss. Multilevel spinal canal stenosis secondary to disc protrusions and marginal osteophytes, worst and moderate to severe at C3-4. Multilevel mild and moderate neuroforaminal narrowing secondary to uncovertebral arthrosis. Multilevel mild and moderate facet arthrosis. Bilateral thyroid nodules, largest a 2.3 cm right thyroid nodule. No cervical lymphadenopathy. Bilateral carotid atherosclerosis. The visualized aerodigestive tract is normal. The visualized portions of the lungs are clear. IMPRESSION: 1. No acute intracranial process. 2. No acute cervical spine fracture. 3. Mild cerebral volume loss. Moderate chronic small vessel ischemic disease. Large area of left MCA territory encephalomalacia. 4. Degenerative cervical spondylosis, worst at C3-4 with moderate to severe spinal canal narrowing. 5. Indeterminate right thyroid nodule measuring 2.2 cm. This could be further characterized with nonemergent thyroid ultrasound, if not performed previously. Electronically signed by: Leon Adame MD (06/11/2019 9:23 AM) [facility]
[2019-06-11] MEDS ORDERED: ASPIRIN 81 MG TAB.CHEW PO ONE (09:45)
[2019-06-11] MEDS ORDERED: NEOMY/BACITR/POLYMYXIN OINT PACKET. TP ONE (09:45)
[2019-06-11 13:09] VITALS: BP 136/75
== END 2019-06-11 13:35 | disposition short-term general hospital (02) ==
LOC: ER 08:09
DX: S00.81XA Abrasion of other part of head, initial encounter (principal); S80.212A Abrasion, left knee, initial encounter; R55 Syncope and collapse; R79.89 Other specified abnormal findings of blood chemistry; I13.2 Hypertensive heart and chronic kidney disease with heart failure and with stage 5 chronic kidney disease, or end stage renal disease; E11.22 Type 2 diabetes mellitus with diabetic chronic kidney disease; N18.6 End stage renal disease; I50.9 Heart failure, unspecified; I48.91 Unspecified atrial fibrillation; E78.00 Pure hypercholesterolemia, unspecified; Z86.2 Personal history of diseases of the blood and blood-forming organs and certain disorders involving the immune mechanism; Z86.73 Personal history of transient ischemic attack (TIA), and cerebral infarction without residual deficits; Z99.2 Dependence on renal dialysis; Z88.8 Allergy status to other drugs, medicaments and biological substances; W18.39XA Other fall on same level, initial encounter; Y93.89 Activity, other specified; Y92.89 Other specified places as the place of occurrence of the external cause; Y99.8 Other external cause status
CPT/HCPCS: 12011; 36415; 70450; 71045; 72125; 80053; 83735; 84484; 85025; 85610; 85730; 93005; 99285-25

== ENCOUNTER → 2019-12-08 | Outpatient (CLI) | payer MEDICARE, BC ==
[~2019-12-08] MED LIST changes: +POTA20TA4 PO; -POTA20TA82 PO
--- NOTE | 2019-12-08 18:20 | RAD ---
CT THORACIC SPINE WO CONTRAST Indication: Arm numbness and pain Technique: Noncontrast CT imaging was performed of the thoracic spine, multiplanar reconstruction images submitted. One or more of the following individualized dose reduction techniques were utilized for this examination: 1. Automated exposure control 2. Adjustment of the mA and/or kV according to patient size 3. Use of iterative reconstruction technique. Comparison: None Findings: There is bone demineralization. 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 Thoracic vertebral body stature is mostly maintained other than very mild superior endplate concavity at T12 at site of fracture of the vertebral body which extends from the superior endplate to the posterior, inferior endplate and posterior cortical surface with mild offset fracture fragments, not associated with significant osseous retropulsion. There is accentuation of thoracic kyphosis. There is multilevel thoracic facet degenerative change, contributes to multilevel neural foramina compromise. There is likely moderate to severe narrowing on the left at T1-T2, overall mild narrowing on the left such as T8-T9 and T11-T12. There is cjsr-hy-vcriiuqx narrowing on the right at T10-T11 and T9-10, moderate narrowing on the right at T6-T7. There is moderate to severe narrowing on the right at T2-T3. There is moderate to severe right and moderate left T12-L1 neural foramina compromise. There is disc osteophyte complex T12-L1 slightly indenting the ventral thecal sac. No high-grade thoracic spinal stenosis is identified on this nonmyelographic exam. There is moderate thoracic dextroscoliosis. Heart is enlarged. There is extensive coronary calcification. There is also atherosclerotic calcification of the celiac and superior mesenteric arteries. Left kidney is not seen on this exam. There are a few dense, small, likely partially calcified nodules of the right upper lobe and left lower lobe. There are some splenic granulomas, also nonspecific slightly lobulated contour medially. IMPRESSION: 1. There is likely recent T12 vertebral body fracture extending from the superior endplate to the posterior, inferior endplate and posterior cortical surface. There is bone demineralization. 2. 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 3. Multilevel facet degenerative change contributes to multilevel thoracic neural foramina compromise. 4. There is extensive coronary calcification. Heart is enlarged. Electronically signed by: Leon Santos MD (12/08/2019 6:17 PM) [id number]
== END | disposition home or self-care (01) ==
LOC: CT 10:48
PROVIDERS: ATTEND Neurological Surgery
DX: S22.089A Unspecified fracture of T11-T12 vertebra, initial encounter for closed fracture (principal); M40.294 Other kyphosis, thoracic region; M53.85 Other specified dorsopathies, thoracolumbar region; M25.78 Osteophyte, vertebrae; I25.10 Atherosclerotic heart disease of native coronary artery without angina pectoris; I51.7 Cardiomegaly; X19.XXXA Contact with other heat and hot substances, initial encounter; Y93.89 Activity, other specified; Y92.89 Other specified places as the place of occurrence of the external cause; Y99.8 Other external cause status
CPT/HCPCS: 72128

== ENCOUNTER → 2020-04-19 | Outpatient (CLI) | payer MEDICARE, BC ==
--- NOTE | 2020-04-19 16:09 | CARD ---
MR#: [id number] Date of Study: 04/19/2020 Ordering Physician: VALERIE LYNNE, Referring Physician: VALERIE LYNNE, Tech: Nia Castellanos APPROVED REPORT EXAM: Two-dimensional and M-mode echocardiogram with Doppler and color Doppler. Other Information Quality : AverageHR: 63bpm Technically limited study due to body habitus. INDICATION Cardiomyopathy RISK FACTORS Hypertension Hyperlipidemia Diabetes 2D DIMENSIONS RVDd3.7 (2.9-3.5cm)Left Atrium(2D)5.6 (1.6-4.0cm) IVSd1.3 (0.7-1.1cm)Aortic Root(2D)3.3 (2.0-3.7cm) LVDd6.1 (3.9-5.9cm)LVOT Diameter2.0 (1.8-2.4cm) PWd1.2 (0.7-1.1cm)LVDs5.2 (2.5-4.0cm) FS (%) 14.2 %SV55.6 ml Aortic Valve AoV Peak Guillermo.187.1cm/sAoV VTI39.1cm AO Peak GR.14.0mmHgLVOT Peak Guillermo.100.9cm/s LVOT VTI 21.19cmAO Mean GR.7mmHg TERESSA (VMAX)1.76cd5CXM (VTI)1.73cm2 Mitral Valve MV E Whjgurio24.0cm/sMV E Peak Gr.80mmHg MV DECEL [id number] A Vjpmsooe55.5cm/s MV E Mean Gr.2mmHgE/A Ratio3.6 Pulmonary Valve PV Peak Htccgzos93.4cm/sPV Peak Grad.3mmHg Tricuspid Valve TR P. Vuioiiaj478dt/sRAP NOAKCCUX0uuGl TR Peak Gr.01tvWwWUDL39tyOv LEFT VENTRICLE The Left Ventricle is mildly dilated. There is mild to moderate concentric left ventricular hypertrop hy. The systolic function is moderately impaired. The Ejection Fraction is 30-35%. There is global hy pokinesis of the left ventricle. Transmitral Doppler flow pattern is abnormal. RIGHT VENTRICLE The right ventricle is mildly dilated. There is normal right ventricular wall thickness. Systolic fun ction is mildly reduced. ATRIA The left atrium is mildly dilated. The right atrium is mildly dilated. The interatrial septum is inta ct with no evidence for an atrial septal defect or patent foramen ovale as noted on 2-D or Doppler im aging. AORTIC VALVE The aortic valve is thickened but opens well. Doppler and Color Flow revealed trace aortic regurgitat ion. There is no significant aortic valvular stenosis. MITRAL VALVE The mitral valve is normal in structure and function. There is no evidence of mitral valve prolapse. There is no mitral valve stenosis with an mean gradient of 2 mmHg. Doppler and Color-flow revealed mi ld to moderate mitral regurgitation. TRICUSPID VALVE The tricuspid valve is normal in structure and function. Doppler and Color Flow revealed mild to mode rate tricuspid regurgitation with an estimated PAP of 70 mmHg. There is no tricuspid valve stenosis. PULMONIC VALVE The pulmonic valve is not well visualized. Doppler and Color Flow revealed trace to mild pulmonic olga vular regurgitation. GREAT VESSELS The aortic root is normal in size. The ascending aorta is borderline dilated. The IVC was not well vi sualized. PERICARDIAL EFFUSION There is no evidence of significant pericardial effusion. Critical Notification Critical Value: No <Conclusion> The Left Ventricle is mildly dilated. The systolic function is moderately impaired. The Ejection Fraction is 30-35%. There is global hypokinesis of the left ventricle. There is mild to moderate concentric left ventricular hypertrophy. Doppler and Color Flow revealed trace aortic regurgitation. There is no significant aortic valvular stenosis. Doppler and Color-flow revealed mild to moderate mitral regurgitation. Doppler and Color Flow revealed mild to moderate tricuspid regurgitation with an estimated PAP of 70 mmHg. Signed by : Nhan Plummer MD Electronically Approved : 04/19/2020 16:08:28
--- NOTE | 2020-04-19 16:22 | RAD ---
MR#: [id number] Date of Study: 04/19/2020 Ordering Physician: VALERIE VIEYRA, Referring Physician: VALERIE VIEYRA, Tech: Odette Marin RVT, MARCKSD APPROVED REPORT Patient Location: OUT-PATIENT Indications PAD There are bilateral mild to moderate diffuse atherosclerotic plaques in the lower extremity arterial vessels. Spectral waveforms are mostly triphasic and biphasic in the right side from the common femo ral artery to the popliteal segment. Below the knee the posterior tibial and peroneal velocities are within normal limits. Slightly diminished dorsalis pedis velocities and a monophasic wave pattern b ut overall no significant occlusive disease noted. On the left side there are triphasic waveforms from the common femoral artery to the popliteal segmen t. Below the knee the posterior tibial artery velocities are elevated but triphasic. The peroneal a rtery is occluded. The anterior tibial artery has normal velocities. Risk Factors Hypertension Diabetes Smoking VELOCITY AND DOPPLER WAVEFORM ANALYSIS RIGHT cm/secWaveformSeverity LEFT cm/secWaveform Severity pCFA 110.0TriphasicpCFA 107.0Triphasic Prof Fem Art. 92.0BiphasicProf Fem Art. 111.0Triphasic Fem Art Prox. 86.0TriphasicFem Art Prox. 99.0Triphasic Fem Art Mid. 79.0TriphasicFem Art Mid. 107.0Triphasic Fem Art Dist. 109.0TriphasicFem Art Dist. 97.0Triphasic Pop Art(Fossa) 67.0TriphasicPop Art(AK) 60.0Triphasic WALL WORKER Prox. 41.0BiphasicPTA Prox. 158.0Triphasic WALL WORKER Dist. 41.0BiphasicPTA Dist. 57.0Biphasic Per Art Mid. Per Art Mid. Occluded Per Art Dist.119.0TriphasicPer Art Dist. KELLIE Prox. 27.0BiphasicATA Prox. 75.0Biphasic DPA 37MonophasicDPA 115Triphasic Critical Notification Critical Value: No <Conclusion> 1. No critical lower extremity arterial disease noted. Probable mild to moderate disease below the knee. Signed by : Valerie Vieyra, Electronically Approved : 04/19/2020 16:22:16
== END | disposition home or self-care (01) ==
LOC: US 12:24
PROVIDERS: ATTEND Internal Medicine Cardiovascular Disease
DX: I08.8 Other rheumatic multiple valve diseases (principal); I11.9 Hypertensive heart disease without heart failure; I25.5 Ischemic cardiomyopathy; I73.9 Peripheral vascular disease, unspecified
CPT/HCPCS: 93306; 93925

== ENCOUNTER 2020-08-16 19:06 | Emergency (ER) | payer MEDICARE, BC ==
[~2020-08-16] VITALS: Ht 182.9 cm; Wt 100.7 kg
--- NOTE | 2020-08-16 20:28 | RAD ---
Exam: Right RIBS with PA chest INDICATION: Right anterior lower rib pain TECHNIQUE: Frontal view of the chest with frontal and oblique views of the right ribs Comparisons: None FINDINGS: Heart is enlarged. Pulmonary vessels are within normal limits. Hazy opacity lung bases bilaterally. No pleural effusion. No displaced rib fractures. IMPRESSION: 1. Findings likely related to mild pulmonary edema. 2. No displaced rib fractures. Electronically signed by: Perla Armando MD (08/16/2020 8:25 PM) [facility]
--- NOTE | 2020-08-16 20:29 | RAD ---
Exam: Right knee 3 views INDICATION: Right anterior knee pain with abrasion TECHNIQUE: Frontal, lateral and oblique views of the right knee Comparisons: None FINDINGS: Diffuse osteopenia. Bone mineralization is normal. No acute or healed fractures. Soft tissues are unremarkable. IMPRESSION: No acute osseous abnormality. Electronically signed by: Perla Armando MD (08/16/2020 8:26 PM) [facility]
[2020-08-16] MEDS ORDERED: LIDOCAINE 1%/EPI 1:100,000 20 ML VIAL. IJ ONE (20:30)
--- NOTE | 2020-08-16 20:54 | PHYS DOC ---
Past History Past Medical History: Cancer, CHF, CVA, Hypertension, Renal Failure (on dialysis MWF) Past Surgical History: Other Additional Past Surgical Histo: LEFT FISTULA, LEFT KIDNEY Smoking: Non-smoker Alcohol Use: None Drug Use: None General Adult EDM: Chief Complaint: MECHANICAL FALL HPI: HPI: Patient is a 75-year-old male, brought to the emergency department by his after a fall this evening. Patient was picking up dog toys when he lost his balance and fell forward hitting his head on a table. He denies any loss of consciousness, neck pain, nausea, vomiting, vision changes, or headache. He complains of pain and a laceration to his right orbit, an abrasion and pain to his right anterior knee, and right lower anterior rib pain. He denies any shortness of breath, hemoptysis, chest pain, cough, dizziness, syncope, abdominal pain, fever, or confusion. Patient is currently on dialysis on Mondays, Wednesdays, and Fridays. Patient states his last tetanus shot was less than 5 years ago. He currently rates his pain a 6 out of 10 on the pain scale, he denies any alleviating factors, the pain is worse with patient and his right eye. Review of Systems: Review of Systems: Complete ROS is negative unless otherwise noted in HPI. Current Medications: Current Meds: Current Medications Medications (Trade) Dose Ordered Sig/[facility] Start Time Stop Time Status Last Admin Dose Admin Lidocaine/ Epinephrine (Xylocaine 1%-Epi 1:100,000) 20 ml 1X ONCE 08/16/20 20:30 08/16/20 20:31 DC 08/16/20 20:27 20 ML Allergies: Allergies: Allergies Coded Allergies Type Severity Reaction Last Updated Verified lisinopril Adverse Reaction Intermediate cough 12/02/13 Yes Physical Exam: PE: See Above Constitutional: Well developed, well nourished, no acute distress, non-toxic appearance. [] HENT: Normocephalic, bilateral external ears normal, oropharynx moist, no oral exudates, nose normal; tenderness to palpation of the right orbit [] Eyes: PERRLA, EOMI, conjunctiva normal, no discharge, see skin assessment [] Neck: Normal range of motion, no tenderness, supple, no stridor. [] Cardiovascular:Heart rate regular rhythm, no murmur [] Lungs & Thorax: Bilateral breath sounds clear to auscultation in upper lobes bilaterally, diminished in the lower lobes bilaterally, no retractions, speaking full sentences; right lower anterior rib tenderness to palpation, no subcutaneous emphysema, no crepitus [] Abdomen: Bowel sounds normal, soft, no tenderness, no masses, no pulsatile masses. [] Skin: Warm, dry; 3 cm stellate laceration noted to lateral right orbit, no visible foreign body, bleeding controlled with bandage in place; 2 cm diameter abrasion to right anterior lower knee, no bleeding Back: No tenderness Extremities: Right knee: Anterior tenderness to palpation, no deformity, no crepitus, no tenderness, no cyanosis, no clubbing, ROM intact, no edema. [] Neurologic: Alert and oriented X 3, normal motor function, normal sensory function, no focal deficits noted. [] Psychologic: Affect normal, judgement normal, mood normal. [] Current Patient Data: Vital Signs: Vital Signs Date Time Temp Pulse Resp B/P (MAP) Pulse Ox O2 Delivery O2 Flow Rate FiO2 08/16/20 19:20 97.6 58 20 136/97 (110) 97 Room Air EKG: EKG: [] Radiology/Procedures: Radiology/Procedures: PROCEDURE: KNEE RIGHT 3V Exam: Right knee 3 views INDICATION: Right anterior knee pain with abrasion TECHNIQUE: Frontal, lateral and oblique views of the right knee Comparisons: None FINDINGS: Diffuse osteopenia. Bone mineralization is normal. No acute or healed fractures. Soft tissues are unremarkable. IMPRESSION: No acute osseous abnormality.[] PROCEDURE: RIBS RIGHT AND PA CHEST Exam: Right RIBS with PA chest INDICATION: Right anterior lower rib pain TECHNIQUE: Frontal view of the chest with frontal and oblique views of the right ribs Comparisons: None FINDINGS: Heart is enlarged. Pulmonary vessels are within normal limits. Hazy opacity lung bases bilaterally. No pleural effusion. No displaced rib fractures. IMPRESSION: 1. Findings likely related to mild pulmonary edema. 2. No displaced rib fractures. PROCEDURE: CT HEAD AND MAXILLOFACIAL WO Exam: CT head and maxillofacial without contrast INDICATION: Head and facial pain after fall TECHNIQUE: Sequential axial images through the head and face were obtained without the administration of IV contrast. Comparisons: 06/17/2019 FINDINGS: Head: No focal parenchymal lesion or hemorrhage is identified. There is no midline shift or sulcal effacement. There is a chronic infarct at the left parietal lobe. No acute vascular territory infarction is identified. Holt-white distinction is preserved. The ventricular system is within normal limits without compression hydrocephalus. The basal cisterns are well maintained. Face: Extra cranial soft tissue scalp contusion overlying the right superior orbital ridge. The visualized portions of the paranasal sinuses and mastoid air cells are well-pneumatized. No acute fractures. IMPRESSION: Extra cranial soft tissue scalp contusion overlying the right superior orbital ridge without underlying osseous or intracranial abnormality. Exposure: One or more of the following in the visualized dose reduction techniques were utilized for this examination: 1. Automated exposure control 2. Adjustment of the MA and/or KV according to patient size Use of iterative of reconstructive technique Electronically signed by: Perla Armando MD (08/16/2020 9:15 PM) [facility] Laceration Repair by pa: Anesthesia: 1% lidocaine locally with epinephrine Location: Lateral right orbit Tendon/Joint/Nerves: No injury Foreign body: None detected after copious irrigation and exploration with NS and chlorhexidine Technique: 6 simple Interrupted Sutures with 6-0 Prolene Complexity: No subcutaneous sutures/mucosal repair/edge excision Post Closure Length: 3 cm Patient's bleeding was easily controlled in the department and there is no indication of anemia. No evidence of compartment syndrome, neurologic injury, vascular injury, open joint, tendon laceration, or foreign body. Patient is appropriate for outpatient follow up. Heart Score: Risk Factors: Risk Factors: DM, Current or recent (<one month) smoker, HTN, HLP, family history of CAD, obesity. Risk Scores: Score 0 - 3: 2.5% MACE over next 6 weeks - Discharge Home Score 4 - 6: 20.3% MACE over next 6 weeks - Admit for Clinical Observation Score 7 - 10: 72.7% MACE over next 6 weeks - Early Invasive Strategies Course & Med Decision Making: Course & Med Decision Making Pertinent Labs and Imaging studies reviewed. (See chart for details) [] Dragon Disclaimer: Dragon Disclaimer: This electronic medical record was generated, in whole or in part, using a voice recognition dictation system. Departure Departure: Impression: Primary Impression: Laceration of right orbit Qualified Codes: S05.41XA - Penetrating wound of orbit with or without foreign body, right eye, initial encounter Additional Impressions: Head injury, acute, without loss of consciousness Qualified Codes: S09.90XA - Unspecified injury of head, initial encounter Abrasion, right knee, initial encounter Rib pain on right side Disposition: 01 DC HOME SELF CARE/HOMELESS Condition: STABLE Referrals: [facility]IT [facility] (PCP) Patient Instructions: Facial Laceration, [id number], Fall Prevention and Home Safety, [id number], Head Injury, Adult, [id number], Rib Contusion Additional Instructions: Tylenol as needed for pain. Apply ice to sore areas as needed for comfort. Follow the head injury precautions provided. Keep the sutured area clean and dry. Keep the dressing that was placed today on for 24 hours then change the dressing twice a day and as needed. Follow-up with your primary care doctor, or return to the emergency room in 5-7 days to have the sutures removed, sooner if you develop signs of infection including: redness, warmth, drainage, or a fever. SAMY SCHILLING APRN Aug 16, 2020 20:54
[2020-08-16] MEDS ORDERED: NEOMY/BACITR/POLYMYXIN OINT PACKET. TP ONE (21:00)
--- NOTE | 2020-08-16 21:18 | RAD ---
Exam: CT head and maxillofacial without contrast INDICATION: Head and facial pain after fall TECHNIQUE: Sequential axial images through the head and face were obtained without the administration of IV contrast. Comparisons: 06/17/2019 FINDINGS: Head: No focal parenchymal lesion or hemorrhage is identified. There is no midline shift or sulcal effacement. There is a chronic infarct at the left parietal lobe. No acute vascular territory infarction is identified. Holt-white distinction is preserved. The ventricular system is within normal limits without compression hydrocephalus. The basal cisterns are well maintained. Face: Extra cranial soft tissue scalp contusion overlying the right superior orbital ridge. The visualized portions of the paranasal sinuses and mastoid air cells are well-pneumatized. No acute fractures. IMPRESSION: Extra cranial soft tissue scalp contusion overlying the right superior orbital ridge without underlying osseous or intracranial abnormality. Exposure: One or more of the following in the visualized dose reduction techniques were utilized for this examination: 1. Automated exposure control 2. Adjustment of the MA and/or KV according to patient size Use of iterative of reconstructive technique Electronically signed by: Perla Armando MD (08/16/2020 9:15 PM) [facility]
[2020-08-16 22:00] VITALS: BP 136/78
[2020-08-16] MEDS ORDERED: ONDANSETRON ODT 4 MG TAB.RAPDIS PO ONE (22:30)
== END 2020-08-16 22:30 | disposition home or self-care (01) ==
LOC: ER 19:06
DX: S05.41XA Penetrating wound of orbit with or without foreign body, right eye, initial encounter (principal); S09.90XA Unspecified injury of head, initial encounter; S80.211A Abrasion, right knee, initial encounter; R07.81 Pleurodynia; I13.0 Hypertensive heart and chronic kidney disease with heart failure and stage 1 through stage 4 chronic kidney disease, or unspecified chronic kidney disease; N18.9 Chronic kidney disease, unspecified; I50.9 Heart failure, unspecified; Z86.73 Personal history of transient ischemic attack (TIA), and cerebral infarction without residual deficits; Z88.8 Allergy status to other drugs, medicaments and biological substances; W18.09XA Striking against other object with subsequent fall, initial encounter; Y93.89 Activity, other specified; Y92.89 Other specified places as the place of occurrence of the external cause; Y99.8 Other external cause status
CPT/HCPCS: 12013; 70450; 70486; 71101; 73562; 99285; Q0162

== ENCOUNTER → 2020-10-19 | Outpatient (CLI) | payer MEDICARE, BC ==
--- NOTE | 2020-10-20 04:12 | RAD ---
XR THORACIC SPINE 3VIEWS 10/19/2020 12:34 PM INDICATION: Back pain, patient unable to lay down. COMPARISON: None available TECHNIQUE: 3 views of the thoracic spine are provided. FINDINGS/ IMPRESSION: 1. Dextroconvex curvature of the thoracic spine is noted which may be secondary to patient positionin g. Sagittal alignment appears intact. There is bridging anterior marginal osteophytosis as may be see n with diffuse idiopathic skeletal hyperostosis. Minimal superior plate concavity at the suspected T6 vertebral level, likely chronic. No significant compression fractures identified. Patient positionin g limits evaluation. If there is persistent clinical concern, further evaluation with MR thoracic spi ne could be of benefit. 2. Vascular stent graft is partially profiled suspected axillary region. Electronically signed by: Yaima Connors MD (10/20/2020 4:10 AM) SELMA
--- NOTE | 2020-10-20 04:13 | RAD ---
XR LUMBAR SPINE 4+V 10/19/2020 12:34 PM INDICATION: Neck pain COMPARISON: None available. TECHNIQUE: 5 views of the lumbar spine are provided. FINDINGS/ IMPRESSION: 1. There are 5 nonrib-bearing lumbar type vertebral bodies with mild levoconvex curvature of the lumb ar spine. There is grade 1 retrolisthesis of L2 on L3 and L3 on L4. There is moderate to advanced dis c height loss at L4-L5. Moderate disc height loss at L3-L4 and L5-S1 disc height loss at T12-L1 and L 1-L2. No acute compression fracture is identified. 2. Moderate to advanced facet arthropathy in lower lumbar spine. Osseous neural foraminal stenosis cobb spected at L5-S1. Atherosclerotic changes of the abdominal aorta are present. 3. No spondylolysis. Sacrum and coccyx are intact. Electronically signed by: Yaima Connors MD (10/20/2020 4:11 AM) [facility]
== END ==
LOC: PMG 12:03
PROVIDERS: ATTEND Physician Assistant Medical
DX: M54.5 Low back pain (principal); M54.9 Dorsalgia, unspecified
CPT/HCPCS: 72072; 72110

== ENCOUNTER 2021-01-11 15:36 | Emergency (ER) | payer MEDICARE, BC ==
[~2021-01-11] VITALS: Ht 182.9 cm; Wt 100.7 kg
[~2021-01-11 15:36] MED LIST changes: -LISI-338 PO; +LISI-517 PO
[2021-01-11] MEDS ORDERED: ONDANSETRON PF 4 MG/2 ML VIAL. IVP ONE (16:00)
[2021-01-11] MEDS ORDERED: IOHEXOL 300 MG/ML 75 ML VIAL. IV ONE (16:00)
[2021-01-11] MEDS ORDERED: IV NORMAL SALINE 1,000ML 1,000 ML IV SCH (16:00)
[2021-01-11 16:26] LABS: BASO # 0.1 x10^3/uL (0.0-0.2); BASO % 1 % (0-3); EOS % 1 % (0-3); HEMATOCRIT 31.4 % (39.0-53.0); HEMOGLOBIN 10.3 g/dL (13.0-17.5); LYMPH # 0.5 x10^3/uL (1.0-4.8); LYMPH % 10 % (24-48); MEAN CORPUSCULAR HEMOGLOBIN 34 pg (25-35); MEAN CORPUSCULAR HGB CONC 33 g/dL (31-37); MEAN CORPUSCULAR VOLUME 104 fL (79-100); MONO # 0.6 x10^3/uL (0.0-1.1); MONO % 11 % (0-9); NEUT # 4.2 x10^3uL (1.8-7.7); NEUT % 77 % (31-73); PLATELET COUNT 141 x10^3/uL (140-400); RED BLOOD COUNT 3.03 x10^6/uL (4.30-5.70); RED CELL DISTRIBUTION WIDTH 16.2 % (11.5-14.5); WHITE BLOOD COUNT 5.4 x10^3/uL (4.0-11.0)
[2021-01-11 16:37] LABS: CALCIUM 9.3 mg/dL (8.5-10.1); CREATININE 3.4 mg/dL (0.7-1.3); GFR 17.8; POTASSIUM 3.7 mmol/L (3.5-5.1)
[2021-01-11 16:46] LABS: ALBUMIN 3.5 g/dL (3.4-5.0); ALBUMIN/GLOBULIN RATIO 0.9 (1.0-1.7); TOTAL BILIRUBIN 0.6 mg/dL (0.2-1.0); TOTAL PROTEIN 7.5 g/dL (6.4-8.2)
--- NOTE | 2021-01-11 17:19 | RAD ---
Exam: CT of chest, abdomen and pelvis without contrast INDICATION: Chest pain, with vomiting TECHNIQUE: Sequential axial images through the chest, abdomen and pelvis obtained without IV contrast . Sagittal and coronal reformatted images were reconstructed from the axial data and reviewed. Comparisons: None FINDINGS: Visualized portions of the thyroid are unremarkable. There are numerous prominent but not enlarged bi lateral lymph nodes. Heart is moderately enlarged. Moderate coronary artery dilatation. Trace bilateral pleural effusions. Thoracic aorta has a normal course and caliber. Pulmonary artery is not enlarged. Airways are patent. Mild bronchial wall thickening. There is groundglass opacity at lung bases bilate rally. Trace left pleural effusion. Evaluation of the solid abdominal organs is limited secondary to noncontrast technique. Liver, spleen, pancreas and adrenals are unremarkable. Gallbladder is distended and appears thin-wall ed. Left kidney is absent. There are cystic exophytic lesions at the right kidney which are incompletely characterized on this study. Mild adjacent fat stranding is also noted. Bladder is decompressed not well evaluated. Prostate is not enlarged. Large and small bowel are unremarkable. Appendix is not identified. No free intra-abdominal air or f luid. No obstruction. Abdominal aorta has a normal course and caliber. Abdominal vasculature is patent. No enlarged intra-abdominal lymph nodes are identified. No suspicious osseous lesions or acute fractures. IMPRESSION: 1. Cardiomegaly with trace pericardial effusion. 2. Trace left pleural effusion. 3. No acute processes identified within the abdomen or pelvis. 4. Numerous exophytic cystic lesions at the right kidney incompletely characterized on this study. F urther evaluation with nonemergent/outpatient renal protocol CT or MRI is recommended. Exposure: One or more of the following in the visualized dose reduction techniques were utilized for this examination: 1. Automated exposure control 2. Adjustment of the MA and/or KV according to patient size 3. Use of iterative of reconstructive technique Electronically signed by: Perla Armando MD (01/11/2021 5:16 PM) [facility]
--- NOTE | 2021-01-11 18:01 | PHYS DOC ---
Past History Past Medical History: Cancer, CHF, CVA, Hypertension, Renal Failure Past Surgical History: Other Additional Past Surgical Histo: LEFT FISTULA, LEFT KIDNEY Smoking: Non-smoker Alcohol Use: None Drug Use: None Adult General Chief Complaint Chief Complaint: NAUSEA/VOMITING/DIARRHEA HPI HPI Patient is a 75-year-old male with a past medical history of stroke, hypertension, end-stage renal disease on dialysis Saturday now presenting the emergency department for dysphagia and vomiting. 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 States that as he tries to eat he has hypersalivation and a large amount of secretions and ends up regurgitating approximately 20 or 30 seconds after a meal. States that this has progressed in severity and patient has been able to tolerate liquids but unable to successfully tolerate solids. No reported fever chills. Patient is denying any chest pain or abdominal pain. Review of Systems Review of Systems Constitutional: Denies fever or chills [] Eyes: Denies change in visual acuity, redness, or eye pain [] HENT: Denies nasal congestion or sore throat [] Respiratory: Denies cough or shortness of breath [] Cardiovascular: No additional information not addressed in HPI [] GI: Denies abdominal pain, nausea, vomiting, bloody stools or diarrhea [] : Denies dysuria or hematuria [] Musculoskeletal: Denies back pain or joint pain [] Integument: Denies rash or skin lesions [] Neurologic: Denies headache, focal weakness or sensory changes [] Endocrine: Denies polyuria or polydipsia [] All other systems were reviewed and found to be within normal limits, except as documented in this note. Current Medications Current Medications Current Medications Medications (Trade) Dose Ordered Sig/[facility] Start Time Stop Time Status Last Admin Dose Admin Iohexol (Omnipaque 300 Mg/ml) 75 ml 1X ONCE 01/11/21 16:00 01/11/21 16:08 DC Ondansetron HCl (Zofran) 4 mg 1X ONCE 01/11/21 16:00 01/11/21 16:08 DC 01/11/21 16:04 4 MG Sodium Chloride 1,000 ml @ 1,000 mls/hr Q1H 01/11/21 16:00 01/11/21 16:59 DC 01/11/21 16:04 1,000 MLS/HR Allergies Allergies Allergies Coded Allergies Type Severity Reaction Last Updated Verified lisinopril Adverse Reaction Intermediate cough 12/02/13 Yes Physical Exam Physical Exam Constitutional: Well developed, well nourished, no acute distress, non-toxic appearance. [] HENT: Normocephalic, atraumatic, bilateral external ears normal, oropharynx moist, no oral exudates, nose normal. [] Eyes: PERRLA, EOMI, conjunctiva normal, no discharge. [] Neck: Normal range of motion, no tenderness, supple, no stridor. AV graft with palpable thrill Cardiovascular:Heart rate regular rhythm, no murmur [] Lungs & Thorax: Bilateral breath sounds clear to auscultation [] Abdomen: Bowel sounds normal, soft, no tenderness, no masses, no pulsatile masses. [] Skin: Warm, dry, no erythema, no rash. [] Back: No tenderness, no CVA tenderness. [] Extremities: No tenderness, no cyanosis, no clubbing, ROM intact, no edema. [] Neurologic: Alert and oriented X 3, normal motor function, normal sensory function, no focal deficits noted. [] Psychologic: Affect normal, judgement normal, mood normal. [] Current Patient Data Vital Signs Vital Signs Date Time Temp Pulse Resp B/P (MAP) Pulse Ox O2 Delivery O2 Flow Rate FiO2 01/11/21 15:45 97.8 85 16 113/53 (73) 99 Room Air Lab Results Laboratory Tests Test 01/11/21 16:04 White Blood Count 5.4 x10^3/uL (4.0-11.0) Red Blood Count 3.03 x10^6/uL (4.30-5.70) L Hemoglobin 10.3 g/dL (13.0-17.5) L Hematocrit 31.4 % (39.0-53.0) L Mean Corpuscular Volume 104 fL (79-100) H Mean Corpuscular Hemoglobin 34 pg (25-35) Mean Corpuscular Hemoglobin Concent 33 g/dL (31-37) Red Cell Distribution Width 16.2 % (11.5-14.5) H Platelet Count 141 x10^3/uL (140-400) Neutrophils (%) (Auto) 77 % (31-73) H Lymphocytes (%) (Auto) 10 % (24-48) L Monocytes (%) (Auto) 11 % (0-9) H Eosinophils (%) (Auto) 1 % (0-3) Basophils (%) (Auto) 1 % (0-3) Neutrophils # (Auto) 4.2 x10^3uL (1.8-7.7) Lymphocytes # (Auto) 0.5 x10^3/uL (1.0-4.8) L Monocytes # (Auto) 0.6 x10^3/uL (0.0-1.1) Eosinophils # (Auto) 0.0 x10^3/uL (0.0-0.7) Basophils # (Auto) 0.1 x10^3/uL (0.0-0.2) Sodium Level 141 mmol/L (136-145) Potassium Level 3.7 mmol/L (3.5-5.1) Chloride Level 100 mmol/L (98-107) Carbon Dioxide Level 33 mmol/L (21-32) H Anion Gap 8 (6-14) Blood Urea Nitrogen 19 mg/dL (8-26) Creatinine 3.4 mg/dL (0.7-1.3) H Estimated GFR (Cockcroft-Gault) 17.8 BUN/Creatinine Ratio 6 (6-20) Glucose Level 108 mg/dL (70-99) H Calcium Level 9.3 mg/dL (8.5-10.1) Total Bilirubin 0.6 mg/dL (0.2-1.0) Aspartate Amino Transferase (AST) 11 U/L (15-37) L Alanine Aminotransferase (ALT) 14 U/L (16-63) L Alkaline Phosphatase 104 U/L (46-116) Creatine Kinase 47 U/L (39-308) Total Protein 7.5 g/dL (6.4-8.2) Albumin 3.5 g/dL (3.4-5.0) Albumin/Globulin Ratio 0.9 (1.0-1.7) L Lipase 37 U/L (73-393) L EKG EKG [] Radiology/Procedures Radiology/Procedures [] Heart Score C/O Chest Pain: No Risk Factors: Risk Factors: DM, Current or recent (<one month) smoker, HTN, HLP, family history of CAD, obesity. Risk Scores: Risk Factors: DM, Current or recent (<one month) smoker, HTN, HLP, family history of CAD, obesity. Course & Med Decision Making Course & Med Decision Making Pertinent Labs and Imaging studies reviewed. (See chart for details) 75-year-old male brought to the emergency department for nausea, vomiting and regurgitation is most concerning for esophageal obstruction based on the severity and inability to tolerate secretions. Labs obtained and without any acute changes or remarkable. CT scan was obtained without contrast without any significant findings related to the esophagus. I did discuss the case with the project portfolio analyst on-call who agrees that the patient likely needs an upper endoscopy for definitive management as this does likely represent an esophageal obstruction or dysmotility. In addition the patient is unable to tolerate p.o. intake and cannot be safely discharged home. At this time plan to transfer the patient to [facility]. Dragon Disclaimer Dragon Disclaimer This electronic medical record was generated, in whole or in part, using a voice recognition dictation system. Departure Departure: Impression: Primary Impression: Vomiting Disposition: 02 DC/TRF OTHER SHORT TERM HOS Condition: STABLE Referrals: [facility] (PCP) SINDY COVINGTON MD Jan 11, 2021 18:01
[2021-01-11 18:41] VITALS: BP 109/50
--- NOTE | 2021-01-12 08:00 | EKG ---
[address] [address] Test Date: 2021-01-11 Test Time: 16:19:00 Pat Name: ULYSSES ELAM Department: Room: Gender: M Station Tender: : 1945 Requested By: SINDY COVINGTON Order Number: [id number] Reading MD: Measurements Intervals [place] Rate: P: WI: QRS: QRSD: T: QT: QTc: Interpretive Statements
== END 2021-01-11 20:10 | disposition short-term general hospital (02) ==
LOC: ER 15:36
DX: R13.10 Dysphagia, unspecified (principal); R11.10 Vomiting, unspecified; K11.7 Disturbances of salivary secretion; I13.0 Hypertensive heart and chronic kidney disease with heart failure and stage 1 through stage 4 chronic kidney disease, or unspecified chronic kidney disease; N18.9 Chronic kidney disease, unspecified; I50.9 Heart failure, unspecified; Z88.8 Allergy status to other drugs, medicaments and biological substances
CPT/HCPCS: 36415; 71250; 74176; 80053; 82550; 83690; 85025; 93005; 96361; 96374; 99285; J2405; J7030

== ENCOUNTER 2021-04-07 08:51 | Inpatient (IN) | payer OTHER ==
[~2021-04-07] VITALS: Ht 182.9 cm; Wt 90.8 kg
[2021-04-07 10:40] VITALS: BP 147/76
[2021-04-07] MEDS ORDERED: HALO2TAB PO (11:17)
[2021-04-07] MEDS ORDERED: ONDA4TAB12 PO (11:17)
[2021-04-07] MEDS ORDERED: LORA0.5T21 PO (11:17)
[2021-04-07] MEDS ORDERED: HYOS0.1265 SL (11:17)
[2021-04-07] MEDS ORDERED: PANT40TA3 PO (11:17)
[2021-04-07] MEDS ORDERED: MELA5TAB20 PO (11:17)
[2021-04-07] MEDS ORDERED: BISA10SU4 RC (11:17)
[2021-04-07] MEDS ORDERED: TRAZ-120 PO (11:17)
[2021-04-07] MEDS ORDERED: SENN-142 PO ×2 (11:17)
[2021-04-07] MEDS ORDERED: HYDR-2155 PO (11:17)
[2021-04-07] MEDS ORDERED: HYDR2VIA PO (11:33)
[2021-04-07] MEDS ORDERED: ALBU2.5V5 NEB (11:33)
--- NOTE | 2021-04-07 11:48 | NUR ---
Admission note pt admitted to room 124 at 1130 via wheelchair accompanied by transport personnel.
[2021-04-07] MEDS ORDERED: SENNOSIDES/DOCUSATE 8.6/50MG TABLET. PO PRN ×2 (13:00→13:45)
[2021-04-07] MEDS ORDERED: ALBUTEROL SULFATE 2.5 MG/3 ML NEBU. NEB PRN (13:00)
[2021-04-07] MEDS ORDERED: LORazepam 0.5 MG TABLET PO PRN (13:00)
[2021-04-07] MEDS ORDERED: BISACODYL 10 MG SUPP.RECT RC PRN (13:00)
[2021-04-07] MEDS ORDERED: ONDANSETRON ODT 4 MG TAB.RAPDIS PO PRN ×2 (13:00→13:30)
[2021-04-07] MEDS ORDERED: HYDROmorphone 2 MG TABLET PO PRN (13:30)
[2021-04-07] MEDS ORDERED: HYOSCYAMINE 0.125 MG TAB.RAPDIS PO PRN (13:45)
[2021-04-07] MEDS ORDERED: HALOPERIDOL 10 MG/5 ML ORAL.CONC. PO SCH (13:45)
[2021-04-07] MEDS: HALOPERIDOL 10 MG/5 ML ORAL.CONC. PO SCH ×2 (15:54→21:07)
--- NOTE | 2021-04-07 17:31 | HP ---
ADMIT DATE: 04/07/2021 HISTORY OF PRESENT ILLNESS: The patient is a 76-year-old male patient who is currently on hospice for esophageal adenocarcinoma and was admitted to [facility] for respite care. On questioning him, he denied any complaint. PAST MEDICAL HISTORY: Significant for atrial fibrillation, coronary artery disease, congestive heart failure, hypertension, hyperlipidemia, pulmonary hypertension, valvular insufficiency, had a history of CVA, anemia, type 2 diabetes, chronic kidney disease, hyperparathyroidism, esophageal adenocarcinoma as well as gout. PAST SURGICAL HISTORY: Significant for bilateral cataract extraction. ALLERGIES: ALLERGIC TO LISINOPRIL AND NUTS. MEDICATIONS: He is currently on the following medications. He is on Hyoscyamine sulfate 0.125 mg sublingually every 4 hours, albuterol sulfate 2.5 mg 3 mL by nebulizer every 4 hours, hydrocodone/APAP 5/325 one tablet every 6 hours, hydromorphone 2 mg per 1 mL, he takes 4 mg every 2 hours. Trazodone 50 mg, he takes one to two tablets at bedtime. Haloperidol 2 mg 3 times a day, lorazepam 0.5 mg every 4 hours, bisacodyl 10 mg rectally daily p.r.n. for constipation, Senna-S one tablet once a day, ondansetron 1-2 mg as needed every 6-8 hours, Protonix 40 mg daily, and melatonin 5 mg at bedtime. PHYSICAL EXAMINATION: GENERAL: On examining him, the patient looked well and was clearly in no apparent respiratory distress. No pallor, jaundice, cyanosis, or thyromegaly. No jugular venous distention. No lower limb edema. VITAL SIGNS: His heart rate was 69, blood pressure 147/76, temperature 97.2, respiratory rate 20, and oxygen saturation was 93%. Rest of the exam stable. ASSESSMENT: A 76-year-old male patient with esophageal adenocarcinoma, currently on hospice here in the hospital for respite care. SANTIAGO MARTINEZ: Mani TID: [id number]
[2021-04-07 18:25] VITALS: BP 105/60
--- NOTE | 2021-04-07 18:33 | NUR ---
Shift note Pt is resting comfortably in bed and does not complain of pain or nausea. pt has had frequent large BMs this shift.
[2021-04-07] MEDS ORDERED: traZODone 100 MG TABLET. PO SCH (21:00)
[2021-04-07] MEDS: MELATONIN 3 MG TABLET PO SCH (21:00)
[2021-04-07] MEDS: traZODone 50 MG TABLET. PO SCH (21:07)
[2021-04-08] MEDS: HYDROcodone/APAP 5/325MG 1 TAB TABLET PO PRN ×2 (02:18→12:59)
[2021-04-08] MEDS: SENNOSIDES/DOCUSATE 8.6/50MG TABLET. PO SCH (06:00)
[2021-04-08] MEDS: PANTOPRAZOLE 40 MG TABLET. PO SCH (07:30)
[2021-04-08] MEDS: HALOPERIDOL 10 MG/5 ML ORAL.CONC. PO SCH ×3 (08:00→20:00)
[2021-04-08] MEDS ORDERED: traZODone 50 MG TABLET. PO PRN (08:30)
[2021-04-08 11:36] VITALS: BP 94/48
[2021-04-08] MEDS: MELATONIN 3 MG TABLET PO SCH (21:00)
[2021-04-08] MEDS: traZODone 50 MG TABLET. PO SCH (21:42)
[2021-04-09] MEDS: SENNOSIDES/DOCUSATE 8.6/50MG TABLET. PO SCH (03:55)
[2021-04-09 06:04] VITALS: BP 121/68
--- NOTE | 2021-04-09 06:06 | NUR ---
Pt slept well this shift. He has denied offers to get up to toilet. This AM he requested ice water. Will continue to monitor.
[2021-04-09] MEDS: HALOPERIDOL 10 MG/5 ML ORAL.CONC. PO SCH ×3 (08:00→20:00)
[2021-04-09] MEDS: PANTOPRAZOLE 40 MG TABLET. PO SCH (08:45)
[2021-04-09] MEDS: HYDROcodone/APAP 5/325MG 1 TAB TABLET PO PRN (08:46)
[2021-04-09 19:35] VITALS: BP 124/77
[2021-04-09] MEDS: traZODone 50 MG TABLET. PO SCH (20:47)
[2021-04-09] MEDS: MELATONIN 3 MG TABLET PO SCH (20:48)
[2021-04-10] MEDS: SENNOSIDES/DOCUSATE 8.6/50MG TABLET. PO SCH (05:28)
[2021-04-10 05:40] VITALS: BP 118/67
[2021-04-10] MEDS: HALOPERIDOL 10 MG/5 ML ORAL.CONC. PO SCH ×2 (08:00→14:00)
[2021-04-10] MEDS: PANTOPRAZOLE 40 MG TABLET. PO SCH (09:45)
[2021-04-10 14:41] VITALS: BP 119/62
[2021-04-10 19:41] VITALS: BP 108/70
[2021-04-10] MEDS ORDERED: HALOPERIDOL 10 MG/5 ML ORAL.CONC. PO PRN (19:45)
[2021-04-10] MEDS: MELATONIN 3 MG TABLET PO SCH (21:28)
[2021-04-10] MEDS: traZODone 50 MG TABLET. PO SCH (21:28)
[2021-04-11] MEDS: HYDROcodone/APAP 5/325MG 1 TAB TABLET PO PRN ×2 (01:24→15:38)
[2021-04-11] MEDS: SENNOSIDES/DOCUSATE 8.6/50MG TABLET. PO SCH (05:56)
[2021-04-11] MEDS: PANTOPRAZOLE 40 MG TABLET. PO SCH ×2 (07:30→09:01)
[2021-04-11 10:39] VITALS: BP 147/83
--- NOTE | 2021-04-11 18:21 | NUR ---
NURSING NOTE PT UP IN CHAIR THIS AM FOR BREAKFAST, PT REFUSED PO PROTONIX THIS AM. PT DENIED PAIN THIS AM, REFUSED NAUSEA MEDICATIONS, PT STATED THAT HE GETS NAUSEAS AT MEAL TIMES. PT IS RESISTIVE TO TAKING MEDICATION STATED THAT SOMETIMES IT MAKES HIM MORE SICK THAN GOOD. PT C/O PAIN THIS AFTERNOON 5/10 BACK PAIN, PT GIVEN HYDROCODONE. PT THEN FELT NAUSEA AND OFFERED CRACKERS. PT WAS ABLE TO KEEP DOWN THE HYDROCODONE. PT HAS BEEN UP TO CHAIR FOR MEALS TODAY, AND RESTING IN THE BED OTHERWISE. PLAN TO DISCHARGE TOMORROW AT 1000 AM HOME WITH . [facility]ES [place].
[2021-04-11] MEDS: MELATONIN 3 MG TABLET PO SCH (20:21)
[2021-04-11] MEDS: traZODone 50 MG TABLET. PO SCH (20:21)
[2021-04-12] MEDS: SENNOSIDES/DOCUSATE 8.6/50MG TABLET. PO SCH (05:25)
[2021-04-12] MEDS: PANTOPRAZOLE 40 MG TABLET. PO SCH (08:21)
--- NOTE | 2021-04-12 09:45 | DS ---
DATE OF DISCHARGE: 04/12/2021 ATTENDING PHYSICIAN: Dr. Russ. FINAL DISCHARGE DIAGNOSES: 1. Adenocarcinoma of the esophagus, currently in hospice care. 2. Paroxysmal atrial fibrillation. 3. Coronary artery disease. 4. Chronic obstructive pulmonary disease. 5. Old cerebrovascular accident. 6. Chronic kidney disease. 7. Anemia of chronic disease. 8. Type 2 diabetes. HISTORY AND PHYSICAL: The patient is a terminally ill patient age 76. He has adenocarcinoma of the esophagus, currently on hospice care through detoxification. He was admitted for respite care on 04/11/2021. PHYSICAL EXAMINATION: Please see the dictated note. PERTINENT LABORATORY AND X-RAY STUDIES: Please refer to the database. None were drawn because of his terminal situation. COURSE IN THE HOSPITAL: The patient was admitted overnight. Diet was advanced. He ate what he could. He had no pains. He had no dyspnea. He was quite comfortable. On the second hospital day, he was released per hospice. Their recommendation is on the chart. His home meds remain unchanged. He will continue his albuterol, Haldol, hydrocodone p.r.n., Dilaudid p.r.n., hyoscyamine, lorazepam, melatonin, ondansetron p.r.n., Protonix, senna, and trazodone doses unchanged. His prognosis is terminal. He was discharged in stable condition with explicit instructions for end of life care. HENRY DR: Lora TID: [id number] CC: GRUPO RUSS MD, REBEKAH MALAGON
== END 2021-04-12 10:39 | disposition hospice, home (50) | DRG 376 ==
LOC: 1 SOUTH 10:23
PROVIDERS: ADMIT Internal Medicine; ATTEND Internal Medicine
DX: C15.9 Malignant neoplasm of esophagus, unspecified (principal); D63.8 Anemia in other chronic diseases classified elsewhere; E11.22 Type 2 diabetes mellitus with diabetic chronic kidney disease; E78.5 Hyperlipidemia, unspecified; I25.10 Atherosclerotic heart disease of native coronary artery without angina pectoris; I27.20 Pulmonary hypertension, unspecified; I48.0 Paroxysmal atrial fibrillation; I50.9 Heart failure, unspecified; J44.9 Chronic obstructive pulmonary disease, unspecified; N18.9 Chronic kidney disease, unspecified; Z51.5 Encounter for palliative care; Z85.01 Personal history of malignant neoplasm of esophagus; Z86.73 Personal history of transient ischemic attack (TIA), and cerebral infarction without residual deficits; Z98.41 Cataract extraction status, right eye; Z98.42 Cataract extraction status, left eye; Z88.8 Allergy status to other drugs, medicaments and biological substances; Z91.018 Allergy to other foods
CPT/HCPCS: Q0162; Q5005